=== PATIENT | male | born 1995 | race Caucasian/White ===

== ENCOUNTER 2016-08-20 22:18 | Emergency (ER) | payer MEDICAID, OTHER ==
[2016-08-20 22:21] VITALS: BP 177/109; PULSE 108; RESP 21; O2SAT 99
--- NOTE | 2016-08-20 23:03 | ED.REPORT ---
HPI-General Illness Date of Service Aug 20, 2016 ED Provider: Dr. Kris Pearl MD A 21 year old male with a history of meth abuse, anxiety, OCD, bipolar disorder and ADHD presents to the ED via [facility] after a panic attack that occurred just prior to arrival. He was given 500mg of Ketamine upon arrival. Patient is charged with burglary. Police are inquiring if the patient is fit for mcc. Nursing Notes Stated Complaint: AGITATED Chief Complaint: General Complaint Nursing Notes Reviewed: Yes Allergies: Coded Allergies: Penicillins (Verified Allergy, Severe, 06/11/14) Sulfa (Sulfonamide Antibiotics) (Verified Allergy, Severe, 06/11/14) No Active Prescriptions or Reported Meds General Time Seen by MD: 23:03 Chief Complaint Other (Panic Attack) Hx Obtained From: Police Arrived By: Police ([facility]) Sudden in Onset?: Yes Onset Occurred: Just prior to arrival Symptom Duration: 1 - 15 minutes Pertinent Negative: Pt denies other symptoms Recent Healthcare: No recent doctor visit, No recent hospitalization Past Medical History Past Medical History Notes: No daily medications Past Medical History Per previous records, Anxiety Bipolar OCD ADHD Reports: Asthma, Hypertension Past Surgical History Reports: Tonsillectomy Family History Family history of ADHD, DM, HTN, CAD, Strokes, Bipolar, PTSD Smoking History Current Every Day Smoker Social History Alcohol Use: "Social" Drug Use: Meth, THC Ambulatory Status Independent Review of Systems Unable to Obtain ROS Patient condition (Sedated (Ketamine)) Physical Exam Vital Signs Vital Signs Date Time Temp Pulse Resp B/P Pulse Ox O2 Delivery O2 Flow Rate FiO2 08/21/16 00:43 36.6 84 16 156/95 100 Room Air 08/20/16 23:27 90 17 151/85 98 Room Air 08/20/16 23:04 94 23 141/83 99 2 08/20/16 22:21 108 21 177/109 99 2 Initial VS: Reviewed Skin: Warm, Dry, No cyanosis Alertness: Positive: Sleeping but arousable, Somnolent Head / Eyes: Atraumatic, Normocephalic Eye Movement: Positive: Nystagmus present (due to ketamine) ENT: Atraumatic, Airway patent (Patient is protecting airway), Mucous membranes moist Respiratory / Chest: Atraumatic, Breath sounds NL, Breath sounds = bilat RESPIRATORY/CHEST: Chest wall erythema possibly due to struggle Cardiovascular: Heart rate NL, Regular rhythm, Heart sounds NL, Peripheral circulation NL, Pulses = bilaterally Abdomen: Atraumatic, Soft Upper Extremities Upper Extremity / MS: Atraumatic, Inspection NL, Neurologic intact, Vascular intact Lower Extremity / Pelvis / MS: Atraumatic, Inspection NL, Neurologic intact, Vascular intact Re-Eval/Medical Decision Med Decision/Clinical Course 21-year-old male brought in by EMS after he had some sort of a panic attack while he was being booked for burglary. Evidently he started to freak out and hyperventilate. He was given ketamine in the field. He was brought to us somnolent with obvious signs of ketamine sedation. He was observed for 2 hours. He eventually woke up. All the nystagmus was gone. He is oriented 4. Normal cardiopulmonary examination. He was clinically sober. All effects the ketamine had resolved. He was not suicidal homicidal. He is released to the custody of the police officers. Time of Eval: 23:08 Patient Status: Condition improved Re-Evaluation/Progress Note: Patient is rechecked. He is informed of his lab results and diagnosis. Patient is fit for mcc. Counseled Regarding: Diagnosis, Lab results, Need for follow-up, When/why to return to ED Discharge & Departure Primary Impression: Acute situational disturbance Disposition: Home Discharge Condition All VS Reviewed: Yes Condition: Stable Patient Instructions: Generalized Anxiety Disorder (ED), Ketamine (Injection) Additional Instructions: You were sedated with ketamine. Do not drive for the next 12 hours. Do not ingest any sedating medications. Stay with a responsible adult. Follow-up with you primary care physician. Call tomorrow. You are fit for mcc. Referrals: Luis Alberto Reyes MD (PCP) [facility] Attestation Portions of this note were transcribed by Keisha Wilson. I, Dr. Pearl personally performed the history, physical exam and medical decision-making; I reviewed and confirmed the accuracy of the information in the transcribed note. Signed by: Bertin Trinidad, 08/20/16 [id number]. copies to: Luis Alberto Reyes MD, Todd P DO Aug 20, 2016 23:03 KEISHA WILSON Aug 20, 2016 23:09
[2016-08-20 23:04] VITALS: BP 141/83; PULSE 94; RESP 23; O2SAT 99
[2016-08-20 23:27] VITALS: BP 151/85; PULSE 90; RESP 17; O2SAT 98
[2016-08-21 00:43] VITALS: BP 156/95; PULSE 84; RESP 16; O2SAT 100
== END 2016-08-21 00:44 | disposition home or self-care (01) ==
LOC: EDBD 22:18 → SED 22:18
DX: F43.22 Adjustment disorder with anxiety (principal); J45.909 Unspecified asthma, uncomplicated; I10 Essential (primary) hypertension; F17.200 Nicotine dependence, unspecified, uncomplicated; Z88.0 Allergy status to penicillin; Z88.2 Allergy status to sulfonamides